=== PATIENT | male | born 1930 | race Caucasian/White ===

== ENCOUNTER → 2017-07-07 | Outpatient (CLI) | payer MEDICARE, OTHER ==
[~2017-07-07] MED LIST: ASPIR 8181 MG; BENAZEPRIL HCL20 MG PO; CENTRUM SILVER1 EAC2; FISH OIL 1,2001 EACH; LEVOTHYROXINE25 MCG PO; NEXIUM40 MG PO; PROAIR HFA INH8.5 GM; TERAZOSIN HCL2 MG PO; TRAZODONE HCL50 MG PO
--- NOTE | 2017-07-07 10:04 | Diagnostic Imaging Report ---
Exam: Brain MRI without IV contrast History: Left ear pain, speech difficulty Comparison studies: Brain MRI 04/16/2015, head CTs of 08/12/2015 and 12/25/2007. Technique: Sagittal and axial T2 FS, axial DWI, axial and coronal T2 FLAIR, axial T2*GRE. Intravenous contrast: None Findings: Scalp: Normal in signal. No masses. Bone marrow: Normal in signal intensity. Brain sulci: Mildly prominent. Ventricles: Mild compensatory dilatation. Unchanged nonspecific focal adhesion in the frontal horn of the left lateral ventricle without associated ventricular entrapment. No hydrocephalus. Extra axial spaces: No mass or fluid collection. Parenchyma: No mass, hemorrhage or acute ischemia. Scattered discrete and confluent periventricular T2 FLAIR hyperintense signal changes in the supratentorial white matter are nonspecific but most compatible with chronic small vessel ischemic changes. Suprasellar region: No abnormalities. Craniocervical junction: Patent foramen magnum. No Chiari deformation. Vessels: Normal flow-voids in the arteries and sinuses. Incidental findings: Intraocular lens replacements related to previous cataract surgery. IMPRESSION: 1. Mild generalized volume loss. 2. Moderate supratentorial chronic microvascular ischemic changes. 3. No changes from the previous brain MRI of 04/16/2015. Signed by: Dr. Ritesh Chowdhury M.D. on 07/07/2017 10:01 AM
== END ==
LOC: MRI 07:24
PROVIDERS: ATTEND Family Medicine
DX: H92.02 Otalgia, left ear (principal); R47.9 Unspecified speech disturbances
CPT/HCPCS: 70551

== ENCOUNTER → 2017-09-11 | Day surgery (SDC) | payer MEDICARE, OTHER ==
[2017-09-07 10:43] LABS: BASOPHILS % 0.3 % (0.0-1.0); EOSINOPHILS # (AUTO) 0.1 (0.0-0.4); EOSINOPHILS % 1.7 % (0.0-6.0); HEMATOCRIT 40.1 % (38.2-49.6); HEMOGLOBIN 13.8 g/dL (14.0-18.0); LYMPHOCYTES # (AUTO) 3.1 (1.0-3.2); LYMPHOCYTES % 43.4 % (18.0-39.1); MEAN CORPUSCULAR HEMOGLOBIN 29.4 pg (28-32); MEAN CORPUSCULAR HGB CONC 34.4 g/dL (31-35); MEAN CORPUSCULAR VOLUME 85.3 fL (81-99); MONOCYTES # (AUTO) 0.7 (0.2-0.8); MONOCYTES % 9.9 % (4.4-11.3); NEUTROPHILS # (AUTO) 3.2 (2.1-6.9); NEUTROPHILS % 44.4 % (38.7-80.0); PLATELET COUNT 241 x10e3/uL (140-360); RED CELL DISTRIBUTION WIDTH 12.7 % (11.7-14.4)
[~2017-09-11] MED LIST changes: +FENTANYL CITRATE/PF 100MCG/2 ML INJ ONE; +GLYCOPYRROLATE INJ 1MG/ 5 ML SYR ONE; +HYOSCYAMINE SULFATE 0.5 MG/ML AMP ONE; +LIDOCAINE HCL 2% LOCAL INJ 5 ML SDV VIAL INJ ONE; +LOSARTAN POTASS25 MG; +MIDAZOLAM HCL 2 MG/2 ML VIAL ONE; +PROPOFOL IV EMULSION 10 MG/ML 20 ML VIAL ONE
--- NOTE | 2017-09-11 16:24 | Operative Report ---
DATE OF PROCEDURE: September 11, 2017 REFERRING PHYSICIAN: Dr. Dutch Huff PROCEDURES PERFORMED 1. Esophagogastroduodenoscopy with esophageal dilatation over a wire and biopsies. 2. Colonoscopy with polypectomy. INDICATION FOR EGD: Dysphagia. INDICATION FOR COLONOSCOPY: Colorectal cancer screening. MEDICATION: Patient was done under MAC. Please see anesthesiologist's note. PROCEDURE: With the patient in the left lateral decubitus position, the flexible fiberoptic Olympus gastroscope was introduced into the esophagus under direct visualization without any difficulty. There was some diffuse erythema noted in the distal esophagus. There was a tight stricture noted at the GE junction that could not be traversed with the scope. The stricture was then dilated to size 15 Savary over a wire. The scope was then advanced with ease into the stomach. Mucosa overlying the antrum and the body revealed some patchy areas of erythema and low-grade edema, and biopsies were obtained and sent to stain for H. pylori. Pylorus was of normal contour and shape, but there was a focal nodularity just distal to the pylorus in the proximal duodenal bulb, and biopsies were obtained. The rest of the duodenal bulb and the proximal 2nd portion of the duodenum were within normal limits. The scope was then withdrawn back into the stomach and retroflexed. Mucosa overlying the fundus and the cardia appeared to be within normal limits. The scope was then straightened out. The stomach was decompressed. Scope was subsequently withdrawn. Patient tolerated the procedure well. IMPRESSION 1. Distal esophagitis. 2. 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 3. Gastritis, biopsied. Biopsies sent to stain for H. pylori. 4. Focal nodularity, duodenal bulb, biopsied. PLAN: Follow up histology. Increase Nexium to 40 mg 1 p.o. a.c. b.i.d. The patient was then turned around. After adequate lubrication of the anal canal, a flexible fiberoptic Olympus colonoscope was inserted into the rectum with ease and advanced all the way to the ileocolic anastomosis. Anastomosis appeared intact. The scope was then withdrawn slowly, and 1 minute polyp was hot biopsied from the ascending colon. Diverticular disease was noted pretty much throughout. The rectum grossly appeared to be within normal limits. The scope was then retroflexed into the distal rectum, and the area around the dentate line appeared to be within normal limits. The scope was then straightened out. It was subsequently withdrawn. Patient tolerated the procedure well. IMPRESSION 1. Ileocolic anastomosis intact. 2. Diverticulosis. 3. Ascending colon polyp, hot biopsied. PLAN: Follow up histology. Initiate high-fiber, low-fat diet. Initiate high-fiber supplement. Start MiraLAX 17 grams in a glass of water p.o. b.i.d. There is no need for followup colonoscopy in this patient. Job#: [id number] cc:DUTCH HUFF MD
== END | disposition home or self-care (01) ==
LOC: OR 12:33
PROVIDERS: ATTEND Internal Medicine Gastroenterology
DX: K29.50 Unspecified chronic gastritis without bleeding (principal); K63.5 Polyp of colon; K22.2 Esophageal obstruction; K20.9 Esophagitis, unspecified; K21.9 Gastro-esophageal reflux disease without esophagitis; K31.89 Other diseases of stomach and duodenum; Z98.0 Intestinal bypass and anastomosis status; K59.00 Constipation, unspecified; K57.30 Diverticulosis of large intestine without perforation or abscess without bleeding; I10 Essential (primary) hypertension; I44.7 Left bundle-branch block, unspecified; E03.9 Hypothyroidism, unspecified; T78.49XA Other allergy, initial encounter; J34.9 Unspecified disorder of nose and nasal sinuses; Z90.49 Acquired absence of other specified parts of digestive tract; X58.XXXA Exposure to other specified factors, initial encounter; Z01.810 Encounter for preprocedural cardiovascular examination; Z01.812 Encounter for preprocedural laboratory examination; Z79.899 Other long term (current) drug therapy; Z79.82 Long term (current) use of aspirin
CPT/HCPCS: 36415; 43239; 43248; 45384; 85025; 88305; 88312; 93005; J1980; J2001; J2250; J3490; 43450; 45378

== ENCOUNTER → 2017-09-21 | Outpatient (CLI) | payer MEDICARE, OTHER ==
[~2017-09-21] MED LIST changes: -FENTANYL CITRATE/PF 100MCG/2 ML INJ ONE; -GLYCOPYRROLATE INJ 1MG/ 5 ML SYR ONE; -HYOSCYAMINE SULFATE 0.5 MG/ML AMP ONE; -LIDOCAINE HCL 2% LOCAL INJ 5 ML SDV VIAL INJ ONE; -MIDAZOLAM HCL 2 MG/2 ML VIAL ONE; -PROPOFOL IV EMULSION 10 MG/ML 20 ML VIAL ONE
--- NOTE | 2017-09-21 12:36 | Diagnostic Imaging Report ---
EXAM: CT Chest WITHOUT contrast INDICATION: \[id number] \S\[id number] \S\SNORING/SOB/PULM HTN/INSOMNIA/FIBRO COMPARISON: Chest CT dated 10/21/2016 TECHNIQUE: Chest was scanned utilizing a multidetector helical scanner from the lung apex through the level of the adrenal glands without administration of IV contrast. Absence of intravenous contrast decreases sensitivity for detection of lymphadenopathy and vascular pathology. Coronal and sagittal reformations were obtained. Routine protocol was performed. IV CONTRAST: None COMPLICATIONS: None RADIATION DOSE: Total DLP: 467.95 mGy*cm Estimated effective dose: (DLP x 0.014 x size factor) mSv CTDIvol has been reviewed. It is below the limits set by the Radiation Protocol Committee (RPC). FINDINGS: LINES/ TUBES: None. LUNGS AND AIRWAYS: Mild subpleural reticulations are again seen in posterior right upper lobe, anterior left upper lobe, and in both lung bases (right more than left). Bilateral lower lobe bronchiectasis, right greater than left. 3 mm nonspecific right upper lobe nodule (series 3, image 48). Airways are normal. PLEURA: The pleural spaces are clear. Bilateral calcified pleural plaques, right greater than left. HEART AND MEDIASTINUM: The thyroid gland is normal. No mediastinal, hilar or axillary lymphadenopathy. Unchanged scattered subcentimeter mediastinal lymph nodes. Mild cardiomegaly. There is no pericardial effusion. Main pulmonary artery measures 2.8 cm. Severe atherosclerotic calcification of LAD. UPPER ABDOMEN: Few punctate hepatic calcified granulomas. 5.1 cm hepatic caudate lobe cyst. BONES: The visualized bony thorax is within normal limits. SOFT TISSUES: Unremarkable. IMPRESSION: No significant interval change from prior exam. Stable changes of interstitial lung disease as also noted on CT dated 10/21/2016. Bilateral calcified pleural plaques, suggestive of remote asbestos exposure. Signed by: Dr. Anjel Hammond MD on 09/21/2017 12:32 PM
== END ==
LOC: CT 08:40
PROVIDERS: ATTEND Internal Medicine Critical Care Medicine
DX: R06.02 Shortness of breath (principal); J47.9 Bronchiectasis, uncomplicated; J84.10 Pulmonary fibrosis, unspecified; I25.10 Atherosclerotic heart disease of native coronary artery without angina pectoris; K21.9 Gastro-esophageal reflux disease without esophagitis; G47.00 Insomnia, unspecified; R26.81 Unsteadiness on feet; R06.83 Snoring; E03.9 Hypothyroidism, unspecified; R53.1 Weakness
CPT/HCPCS: 71250

== ENCOUNTER → 2018-05-04 | Outpatient (CLI) | payer MEDICARE, OTHER ==
[2018-05-04 14:57] LABS: FOLATE 36.2 ng/mL (7.0-15.4)
--- NOTE | 2018-05-04 15:33 | Diagnostic Imaging Report ---
MRI SPINE LUMBAR WO HISTORY: Left leg weakness COMPARISON: Chest CT 09/21/2017; no dedicated prior lumbar spine imaging available at time of dictation TECHNIQUE: Sagittal T1, sagittal T2, sagittal STIR, axial T2, coronal T2, and axial proton density weighted images of the lumbar spine were obtained without contrast. DISCUSSION: Number of non-rib bearing lumbar vertebral bodies: 5. Alignment: Normal lordosis. No scoliosis. Vertebrae: No fractures, infection or neoplasm. Conus medullaris: Normal, ends at L1-L2. Cauda equina: No masses or arachnoiditis. Posterior paraspinal muscles: Well preserved. No signal abnormalities. Soft tissues: Partially visualized T2 hyperintense right hepatic cyst is present. A few small T2 hyperintense lesions in both kidneys are likely cysts. Distal colonic diverticulosis is partially visualized. Mild multilevel disc degeneration is present. There may be small posterior annular fissures at L1-L2, L4-L5, and L5-S1. T12-L1: Disc bulge without significant canal or foraminal stenosis. L1-L2: Disc bulge without significant canal or foraminal stenosis. L2-L3: Mild canal stenosis due to disc bulge and ligamentum flavum thickening. Mild right foraminal stenosis due to asymmetry of the disc bulge and facet arthrosis. No significant left foraminal stenosis. L3-L4: Mild bilateral foraminal stenoses due to disc bulge and facet arthrosis. No significant canal stenosis. L4-L5: Mild canal stenosis due to disc bulge and ligamentum flavum thickening. Mild bilateral foraminal stenoses due to disc bulge and facet arthrosis. L5-S1: Mild to moderate right and moderate to severe left foraminal stenoses due to disc bulge and facet arthrosis. No significant canal stenosis. IMPRESSION: 1. Mild multilevel disc degeneration. 2. Multilevel bilateral degenerative foraminal stenoses - moderate to severe left and mild to moderate right at L5-S1. 3. Mild degenerative canal stenoses at L2-L3 and L4-L5. Signed by: Dr. Caden Cary M.D. on 05/04/2018 3:30 PM
== END ==
LOC: MRI 12:29
PROVIDERS: ATTEND Psychiatry & Neurology Clinical Neurophysiology
DX: R29.898 Other symptoms and signs involving the musculoskeletal system (principal); M62.81 Muscle weakness (generalized)
CPT/HCPCS: 72148; 82607; 82746; 82784

== ENCOUNTER 2018-06-11 13:00 | Outpatient (RCR) | payer MEDICARE, OTHER | END 2018-06-13 | LOC: PT 13:00 | PROVIDERS: ATTEND Psychiatry & Neurology Clinical Neurophysiology | DX: M54.16 Radiculopathy, lumbar region (principal); G62.9 Polyneuropathy, unspecified ==

== ENCOUNTER 2018-07-12 13:00 | Outpatient (RCR) | payer MEDICARE, OTHER | END 2018-07-13 | LOC: PT 13:00 | PROVIDERS: ATTEND Psychiatry & Neurology Clinical Neurophysiology | DX: M54.16 Radiculopathy, lumbar region (principal); G62.9 Polyneuropathy, unspecified | CPT/HCPCS: 97139 ==

== ENCOUNTER → 2018-07-29 | Outpatient (CLI) | payer MEDICARE, OTHER ==
--- NOTE | 2018-07-29 11:25 | Diagnostic Imaging Report ---
EXAMINATION: CT scan of the chest without contrast. TECHNIQUE: Spiral CT images of the chest were performed from the lung apices to the level of the adrenal glands. No intravenous contrast was administered per referring physician request. Coronal and sagittal reformatted images were obtained. COMPARISON: 09/21/2017 CLINICAL HISTORY:Bronchitis, fibrosis DISCUSSION: ABSENCE OF INTRAVENOUS CONTRAST DECREASES SENSITIVITY FOR DETECTION OF FOCAL LESIONS AND VASCULAR PATHOLOGY. LINES/TUBES: None. LUNGS AND AIRWAYS: No appreciable interval change in subpleural reticulation in the posterior right upper lobe, lingula, and the bilateral lower lobes, right greater than left. Also stable bilateral lower lobe traction bronchiectasis, again right greater than left 3 mm right upper lobe nodule described on the comparison is less conspicuous on the current study. Right middle lobe nodular opacity represents an endobronchial filling defect (series 3 image 95) PLEURA: Unchanged bilateral pleural plaques with associated calcifications. No pleural effusion or pneumothorax. HEART AND MEDIASTINUM: The visualized thyroid gland appears normal. Atherosclerotic calcification of the thoracic aorta and coronary arteries. No pericardial effusion. LYMPH NODES: Nonspecific subcentimeter mediastinal lymph nodes are unchanged. No axillary, hilar, or mediastinal lymphadenopathy. ABDOMEN: Unchanged cyst in the caudate lobe of the liver calcified granuloma left hepatic lobe. Visualized liver, spleen, adrenals, and pancreas are otherwise unremarkable. BONES AND SOFT TISSUES: No osseous destructive lesions. Multilevel degenerative disc changes of the thoracic spine. 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 Atherosclerotic vascular disease. Signed by: Dr. Ritesh Kelly M.D. on 07/29/2018 11:22 AM
== END ==
LOC: CT 10:16
PROVIDERS: ATTEND Internal Medicine Critical Care Medicine
DX: R06.02 Shortness of breath (principal); R53.1 Weakness; J47.9 Bronchiectasis, uncomplicated; I25.10 Atherosclerotic heart disease of native coronary artery without angina pectoris; K21.9 Gastro-esophageal reflux disease without esophagitis; J84.10 Pulmonary fibrosis, unspecified; I27.20 Pulmonary hypertension, unspecified; R06.83 Snoring; G47.00 Insomnia, unspecified; R26.81 Unsteadiness on feet; E03.9 Hypothyroidism, unspecified
CPT/HCPCS: 71250

== ENCOUNTER → 2018-08-13 | Outpatient (RCR) | payer MEDICARE, OTHER | LOC: PT 07-26 12:57 | PROVIDERS: ATTEND Psychiatry & Neurology Clinical Neurophysiology | DX: M54.16 Radiculopathy, lumbar region (principal); M47.26 Other spondylosis with radiculopathy, lumbar region; G62.9 Polyneuropathy, unspecified; M62.81 Muscle weakness (generalized); R26.9 Unspecified abnormalities of gait and mobility ==

== ENCOUNTER 2018-08-23 12:59 | Outpatient (RCR) | payer MEDICARE, OTHER | END 2018-09-12 | LOC: PT 12:59 | PROVIDERS: ATTEND Psychiatry & Neurology Clinical Neurophysiology | DX: M47.26 Other spondylosis with radiculopathy, lumbar region (principal); G62.9 Polyneuropathy, unspecified; M62.81 Muscle weakness (generalized); R26.9 Unspecified abnormalities of gait and mobility ==

== ENCOUNTER → 2018-08-24 | Outpatient (CLI) | payer MEDICARE, OTHER ==
--- NOTE | 2018-08-24 11:08 | Diagnostic Imaging Report ---
Examination: Brain MRI without Contrast History: Memory loss. Unsteady gait. Comparison studies: None. Technique: Precontrast: Hi resolution Sag T1 with coronal and axial reformats. Axial DWI, T2, T2 flair, gradient echo or SWI Intravenous contrast: None. Findings: Structural lesions: No intra-or extra-axial masses. No hematomas. Atrophy: General: Mild generalized volume loss. Focal: No disproportionate lobar, hippocampal, mesencephalic, pontine, or cerebellar atrophy. Melendez matter: Cortex:No signal abnormalities. No encephalomalacia. Basal ganglia: No atrophy or signal abnormalities. Thalami: No signal abnormalities. Micro hemorrhages: None. White matter signal intensity: There are patchy and confluent areas of T2/FLAIR hyperintensity in the periventricular and subcortical white matter, nonspecific. Subarachnoid spaces: No signal abnormalities. Ventricles: Normal in size and configuration. No hydrocephalus. Hippocampi, fornix and mammillary bodies: Normal in size and symmetric. Other: Skull: No bone marrow abnormalities. Vessels: Expected flow voids present in the major arteries and dural sinuses.. Sella: Normal in size. No intra-or suprasellar abnormalities. Cranio-cervical junction: No abnormalities. Patent foramen magnum. No Chiari one malformation. Paranasal sinuses: No T2 hyperintense mucosal thickening. IMPRESSION: 1. Mild generalized volume loss without lobar predominance. 2. Severe chronic microvascular ischemic change. 3. No acute intracranial abnormality. Signed by: Dr. Sarai Medellin M.D. on 08/24/2018 11:04 AM
== END ==
LOC: MRI 08:25
PROVIDERS: ATTEND Psychiatry & Neurology Clinical Neurophysiology
DX: R41.3 Other amnesia (principal)
CPT/HCPCS: 70551

== ENCOUNTER 2018-09-21 09:56 | Outpatient (RCR) | payer MEDICARE, OTHER | END 2018-10-13 | LOC: PT 09:56 | PROVIDERS: ATTEND Psychiatry & Neurology Clinical Neurophysiology | DX: M47.26 Other spondylosis with radiculopathy, lumbar region (principal); R26.9 Unspecified abnormalities of gait and mobility; R26.81 Unsteadiness on feet; M62.81 Muscle weakness (generalized) | CPT/HCPCS: 97139 ==

== ENCOUNTER → 2019-01-07 | Outpatient (CLI) | payer MEDICARE, OTHER ==
--- NOTE | 2019-01-07 14:56 | Diagnostic Imaging Report ---
EXAM: Focused Soft Tissue Ultrasound Evaluation of right pelvic soft tissues INDICATION: ^[id number] ^1351 ^PELVIC MASS COMPARISON: None TECHNIQUE: Melendez scale, color Doppler images of right pelvic soft tissues were obtained. FINDINGS/IMPRESSION: Focused sonographic evaluation of the right pelvic soft tissues in the area of clinical concern demonstrates a mobile 3.1cm mass with peristalsis consistent with herniated loop of bowel. Signed by: Mary Knight MD on 01/07/2019 2:53 PM
== END ==
LOC: US 13:29
DX: R19.00 Intra-abdominal and pelvic swelling, mass and lump, unspecified site (principal); R10.31 Right lower quadrant pain
CPT/HCPCS: 76882

== ENCOUNTER → 2019-01-21 | Outpatient (CLI) | payer MEDICARE, OTHER ==
[~2019-01-21] MED LIST changes: +IOPAMIDOL 370 MG/ML 200 ML INFUS..BTL INJ ONE; +SODIUM CHLORIDE 0.9% 50ML 50 ML ONE
[2019-01-21 16:49] LABS: BLOOD UREA NITROGEN 17 mg/dL (7-26); BUN/CREATININE RATIO 16 (6-25); CREATININE, SERUM 1.06 mg/dL (0.72-1.25); EST GLOMERULAR FILTRATION RATE > 60 ML/MIN (60-)
--- NOTE | 2019-01-21 17:40 | Diagnostic Imaging Report ---
EXAM: CT Chest WITH contrast- Pulmonary Embolism Protocol INDICATION: Shortness of breath COMPARISON: Chest CT of 07/29/2018 TECHNIQUE: Chest was scanned utilizing a multidetector helical scanner from the lung apex through the level of the diaphragm after administration of IV contrast. Thin section reconstructions were obtained with special concentration on the pulmonary arteries. Coronal and sagittal reformations were obtained. Pulmonary embolism protocol was performed. IV CONTRAST: 100 cc of Isovue 370 RADIATION DOSE: Total DLP: 577.6 mGy*cm Dose modulation, iterative reconstruction, and/or weight based adjustment of the mA/kV was utilized to reduce the radiation dose to as low as reasonably achievable. COMPLICATIONS: None FINDINGS: LINES/ TUBES: None. PULMONARY ARTERIES: No filling defect is identified within the pulmonary arteries to the segmental level. The subsegmental pulmonary arteries are not well opacified. Main pulmonary artery measures 2.9 cm in diameter. LUNGS AND AIRWAYS: The central airways are patent. No focal consolidation. Bilateral dependent subsegmental atelectasis. Diffuse ground glass opacities in a geographic pattern may represent a component of air trapping as well as mild airspace edema. Smooth interlobular septal thickening consistent with interstitial edema. Unchanged background of interstitial lung disease in an NSIP pattern. PLEURA: Scattered calcified pleural plaques. Small right pleural effusion. HEART AND MEDIASTINUM: The thyroid gland is normal. No supraclavicular lymphadenopathy. Multiple prominent mediastinal lymph nodes measure up to 1.3 cm short axis. 10 mm left hilar lymph node. Mild cardiomegaly. No pericardial effusion. Scattered atherosclerotic calcifications involve the coronary arteries, aorta, and proximal great vessels. UPPER ABDOMEN: Limited images of the upper abdomen demonstrate no focal abnormality of the partially visualized liver, spleen, pancreas, adrenals, or upper most kidneys. BONES: No acute osseous injury. No suspicious lytic or blastic lesions. Mild degenerative changes of the visualized spine. SOFT TISSUES: Unremarkable. IMPRESSION: No pulmonary embolism. Airspace and interstitial pulmonary edema, mild cardiomegaly, small right pleural effusion. Unchanged interstitial lung disease and calcified pleural plaques, consistent with priors asbestos exposure. Signed by: Mary Knight MD on 01/21/2019 5:37 PM
== END ==
LOC: CT 15:48
PROVIDERS: ATTEND Internal Medicine Critical Care Medicine
DX: R09.02 Hypoxemia (principal); J47.9 Bronchiectasis, uncomplicated; J42 Unspecified chronic bronchitis; J84.10 Pulmonary fibrosis, unspecified; I27.20 Pulmonary hypertension, unspecified; R53.1 Weakness; F41.9 Anxiety disorder, unspecified; I25.10 Atherosclerotic heart disease of native coronary artery without angina pectoris; K21.9 Gastro-esophageal reflux disease without esophagitis; G47.33 Obstructive sleep apnea (adult) (pediatric); R26.81 Unsteadiness on feet; R06.83 Snoring; E03.9 Hypothyroidism, unspecified
CPT/HCPCS: 36415; 71260; 82565; 84520; Q9967

== ENCOUNTER 2019-01-27 16:41 | Inpatient (IN) | payer MEDICARE, OTHER ==
[~2019-01-27] VITALS: Ht 152.4 cm; Wt 75.9 kg
[~2019-01-27 16:41] MED LIST changes: -IOPAMIDOL 370 MG/ML 200 ML INFUS..BTL INJ ONE; -SODIUM CHLORIDE 0.9% 50ML 50 ML ONE
[2019-01-27] MEDS ORDERED: MORPHINE SULFATE 2 MG/ML SYR 1ML IV ONE (17:00)
[2019-01-27] MEDS ORDERED: SODIUM CHLORIDE 0.9% 500ML 500 ML IV STA (17:00)
[2019-01-27] MEDS ORDERED: PANTOPRAZOLE 40 MG 10ML VIAL IV ONE (17:00)
[2019-01-27 17:24] LABS: BASOPHILS % 0.4 % (0.0-1.0); EOSINOPHILS # (AUTO) 0.2 (0.0-0.4); EOSINOPHILS % 2.6 % (0.0-6.0); HEMATOCRIT 38.3 % (38.2-49.6); HEMOGLOBIN 13.1 g/dL (14.0-18.0); LYMPHOCYTES # (AUTO) 2.9 (1.0-3.2); LYMPHOCYTES % 36.9 % (18.0-39.1); MEAN CORPUSCULAR HEMOGLOBIN 29.8 pg (28-32); MEAN CORPUSCULAR HGB CONC 34.2 g/dL (31-35); MONOCYTES # (AUTO) 0.8 (0.2-0.8); MONOCYTES % 9.7 % (4.4-11.3); PLATELET COUNT 294 x10e3/uL (140-360); RED CELL DISTRIBUTION WIDTH 12.4 % (11.7-14.4)
[2019-01-27 17:34] LABS: INR 1.13; PROTHROMBIN TIME 15.1 seconds (11.9-14.5)
[2019-01-27 17:35] LABS: PARTIAL THROMBOPLASTIN TIME 34.7 seconds (23.8-35.5)
[2019-01-27 17:44] LABS: ALANINE AMINOTRANSFERASE 53 IU/L (0-55); ALBUMIN 3.5 g/dL (3.5-5.0); ALBUMIN/GLOBULIN RATIO 0.9 (0.8-2.0); ALKALINE PHOSPHATASE 68 IU/L (40-150); ANION GAP 12.4 mmol/L (8-16); BLOOD UREA NITROGEN 20 mg/dL (7-26); BUN/CREATININE RATIO 18 (6-25); CALCIUM 9.4 mg/dL (8.4-10.2); CARBON DIOXIDE 25 mmol/L (22-29); CHLORIDE 100 mmol/L (98-107); CREATINE KINASE 125 IU/L (30-200); EST GLOMERULAR FILTRATION RATE > 60 ML/MIN (60-); GLUCOSE 93 mg/dL (74-118); POTASSIUM 4.4 mmol/L (3.5-5.1); SODIUM 133 mmol/L (136-145)
[2019-01-27 17:47] LABS: BILIRUBIN,URINE NEGATIVE (NEGATIVE); CLARITY,URINE SL CLOUDY (CLEAR); COLOR,URINE YELLOW (YELLOW); KETONES,URINE NEGATIVE (NEGATIVE); LEUKOCYTE ESTERASE ,URINE NEGATIVE (NEGATIVE); NITRITE,URINE NEGATIVE (NEGATIVE); PROTEIN,URINE DIPSTICK 2+ (NEGATIVE); URINE UROBILINOGEN 0.2 mg/dL (0.2 - 1)
[2019-01-27 18:01] LABS: EPITHELIAL CELLS,URINE FEW /LPF; RBC,URINE 0-5 /HPF (0-5); WBC,URINE (MAN) 0-5 /HPF (0-5)
--- NOTE | 2019-01-27 18:06 | Diagnostic Imaging Report ---
EXAMINATION: CHEST SINGLE (PORTABLE) INDICATION: Cough COMPARISON: Chest CT of 01/21/2019 FINDINGS: LINES/TUBES:EKG leads overlie the chest. LUNGS:The lungs are well-inflated. There is perihilar fullness and indistinctness of the pulmonary vasculature. There is left basilar opacity silhouetting the left graciela diaphragm. PLEURA:No pleural effusion or pneumothorax. MEDIASTINUM:Cardiomediastinal silhouette is stably enlarged. Atherosclerotic calcifications of the thoracic aorta. BONES/SOFT TISSUES:No acute osseous injury. ABDOMEN:No free air under the diaphragm. IMPRESSION: Cardiomegaly and pulmonary edema. Patchy opacity at the left lung base, more likely subsegmental atelectasis than superimposed aspiration or pneumonia. Signed by: Mary Knight MD on 01/27/2019 6:03 PM
[2019-01-27] MEDS ORDERED: FUROSEMIDE40 MG PO (18:59)
[2019-01-27] MEDS ORDERED: MIRTAZAPINE15 MG PO (18:59)
[2019-01-27] MEDS ORDERED: ALPRAZOLAM0.25 MG PO (18:59)
--- NOTE | 2019-01-27 19:02 | NUR ---
Report to CRIS Oconnor
--- NOTE | 2019-01-27 19:15 | Diagnostic Imaging Report ---
EXAM: CT Abdomen and Pelvis WITH contrast INDICATION: Lower abdominal pain. GI bleeding COMPARISON: 01/26/2009 TECHNIQUE: Abdomen and pelvis were scanned utilizing a multidetector helical scanner from the lung base to the pubic symphysis after administration of IV contrast. Coronal and sagittal reformations were obtained. Routine protocol was performed. Scan was performed when during portal venous phase. IV CONTRAST: 100 mL of Isovue 370 ORAL CONTRAST: Water COMPLICATIONS: None RADIATION DOSE: Total DLP: 468 mGy*cm Estimated effective dose: (DLP x 0.015 x size factor) mSv CTDIvol has been reviewed. It is below the limits set by the Radiation Protocol Committee (RPC). Dose modulation, iterative reconstruction, and/or weight based adjustment of the mA/kV was utilized to reduce the radiation dose to as low as reasonably achievable. FINDINGS: LINES and TUBES: None. LOWER THORAX: Chronic appearing change at the lung bases with calcified pleural plaques HEPATOBILIARY: No focal hepatic lesions. No biliary ductal dilation. GALLBLADDER: No radio-opaque stones or sludge. No wall thickening. SPLEEN: No splenomegaly. PANCREAS: No focal masses or ductal dilatation. ADRENALS: No adrenal nodules KIDNEYS/URETERS: Kidneys enhance symmetrically. No hydronephrosis. No cystic or solid mass lesions. No stones. GI TRACT: No abnormal distention, wall thickening, or evidence of bowel obstruction. Appendix is normal. Scattered diverticulosis without evidence of diverticulitis PELVIC ORGANS/BLADDER: Unremarkable. LYMPH NODES: No lymphadenopathy. VESSELS: Scattered vascular calcification. PERITONEUM / RETROPERITONEUM: No free air or fluid. BONES: Scattered degenerative change. SOFT TISSUES: Fat and bowel containing right internal hernia. No bowel obstruction. IMPRESSION: 1. Scattered diverticulosis without evidence of diverticulitis. 2. Fat and bowel containing right inguinal hernia. No bowel obstruction. Signed by: Dr. Sunday Morgan M.D. on 01/27/2019 7:12 PM
[2019-01-27] MEDS ORDERED: IOPAMIDOL 300MG/ML 100 ML INFUS..BTL IV ONE (19:29)
[2019-01-27] MEDS ORDERED: SODIUM CHLORIDE 0.9% 50ML 50 ML ONE (19:29)
[2019-01-27] MEDS ORDERED: IOPAMIDOL 370 MG/ML 200 ML INFUS..BTL INJ ONE (19:32)
[2019-01-27] MEDS ORDERED: ONDANSETRON HCL INJ 2MG/ML 2ML 2 MG/ML VIAL IV PRN (20:30)
[2019-01-27 22:00] VITALS: BP 153/81
--- NOTE | 2019-01-27 22:00 | NUR ---
Patient received via stretcher from ER. AAO x 3. Patient had no complaints of pain. Respirations even and non-labored on 2L NC. Admission history obtained. Initial physical assessment conducted. Patient oriented to room, call light and plan of care. Patient instructed to call for assistance when needed. Call light within
[2019-01-27 22:09] VITALS: BP 153/81
[2019-01-27] MEDS: SODIUM CHLORIDE 0.9% 1000ML 1,000 ML IV SCH (22:15)
[2019-01-28] VITALS (9 sets, daily range): BP systolic 135–175; BP diastolic 76–93
--- NOTE | 2019-01-28 00:15 | NUR ---
Blood specimen sent to lab for analysis of H & H.
[2019-01-28 01:05] LABS: HEMATOCRIT 35.8 % (38.2-49.6); HEMOGLOBIN 12.1 g/dL (14.0-18.0)
[2019-01-28 05:39] LABS: HEMATOCRIT 33.9 % (38.2-49.6)
[2019-01-28] MEDS: SODIUM CHLORIDE 0.9% 1000ML 1,000 ML IV SCH ×2 (06:16→17:06)
--- NOTE | 2019-01-28 07:15 | NUR ---
Patient resting comfortably. Walking rounds done. Shift report given to oncoming nurse.
[2019-01-28] MEDS: PANTOPRAZOLE 40 MG 10ML VIAL IV SCH (08:57)
[2019-01-28 11:07] LABS: HEMATOCRIT 38.4 % (38.2-49.6); HEMOGLOBIN 12.9 g/dL (14.0-18.0)
[2019-01-28] MEDS: HYDROMORPHONE 1MG/1ML INJ IV PRN ×3 (12:14→21:29)
[2019-01-28 18:49] LABS: HEMATOCRIT 34.9 % (38.2-49.6); HEMOGLOBIN 11.8 g/dL (14.0-18.0)
--- NOTE | 2019-01-28 19:20 | NUR ---
Patient received sitting up in bed. Son at bedside. No acute distress noted. Fall precautions implemented. Call light within reach.
--- NOTE | 2019-01-28 20:13 | NUR ---
Dr. Ronnie Barreto notified of patient's elevated BP (175/93) with HR (84) and renewing home medications . Order received to renew home medications.
[2019-01-28] MEDS ORDERED: NON-FORMULARY MEDICATION (Terazosin Hcl 2 MG) PO SCH (21:00)
[2019-01-28] MEDS: TERAZOSIN HCL 1 MG CAP PO SCH (21:00)
[2019-01-28] MEDS: ALPRAZOLAM 0.25 MG TAB PO SCH (21:00)
[2019-01-28] MEDS: TRAZODONE HCL 50 MG TAB PO SCH (21:00)
[2019-01-28] MEDS: LOSARTAN POTASSIUM 25 MG TAB PO SCH (21:04)
[2019-01-28] MEDS: FUROSEMIDE 40 MG TAB PO SCH (21:05)
[2019-01-29] VITALS (8 sets, daily range): BP systolic 122–160; BP diastolic 69–81
--- NOTE | 2019-01-29 00:16 | NUR ---
Blood specimen sent to lab for H & H analysis.
[2019-01-29 00:20] LABS: HEMOGLOBIN 10.9 g/dL (14.0-18.0)
--- NOTE | 2019-01-29 01:06 | Consultation ---
DATE OF CONSULTATION: HISTORY OF PRESENT ILLNESS: An 88 years old gentleman with history of atrial fibrillation, hypertension, hypothyroidism, and prostate hypertrophy, came to the hospital yesterday after episode of dark colored blood per rectum. Throughout the day today, his hemoglobin and hematocrit remained very consistent around 13 hemoglobin and 38 hematocrit. He ever had a colonoscopy by Dr. Clifton Barreto about a year ago. CAT scan with contrast on admission showed scattered diverticulosis. The patient denied abdominal pain, nausea, and vomiting, heartburn, acid reflux, or change in bowel habit. Denies using nonsteroidal anti-inflammatory drugs. ALLERGIES: NIL. CURRENT MEDICATIONS: Dilaudid, Protonix, and Zofran. SOCIAL HISTORY: Socially, he does not smoke or drink. He stopped smoking in 1974. REVIEW OF SYSTEMS: Unremarkable. PHYSICAL EXAMINATION: GENERAL: Awake, alert, oriented, comfortable in bed. VITAL SIGNS: Temperature 97, pulse 64, and blood pressure 142/83. NECK: Supple. LUNGS: Clear. HEART: Regular irregular. Occasional irregular beat and pansystolic murmur. ABDOMEN: Mildly distended. Bowel sounds present. No acute sign. Nontender. No masses. EXTREMITIES: No edema. LABS: Recent hemoglobin 13, hematocrit 38, platelets 295, and white cell count 7. Stool positive for blood. Urinalysis is unremarkable. PT 15, INR 1.13, PTT normal. Albumin 3.5, AST mildly elevated of 41, calcium 9.4, BUN and creatinine normal. Sodium and potassium normal. IMPRESSION: Lower gastrointestinal bleed, most likely diverticulosis. The patient had colonoscopy by Dr. Barreto last year. Throughout the time of visit since admission, he has not had a drop in hemoglobin and hematocrit. The patient is 88 years old. I would rather be very conservative in his treatment. Continue his Protonix. We will place him on liquid diet, start him on fiber, and continue observation today. The AST is mildly elevated at 41. We will address as an outpatient if it is continued to be elevated. Ran Loving MD RD/MODL /[id number]
[2019-01-29] MEDS: SODIUM CHLORIDE 0.9% 1000ML 1,000 ML IV SCH ×3 (04:00→22:16)
[2019-01-29] MEDS: HYDROMORPHONE 1MG/1ML INJ IV PRN ×4 (04:05→23:37)
[2019-01-29 05:28] LABS: HEMATOCRIT 33.7 % (38.2-49.6); HEMOGLOBIN 11.2 g/dL (14.0-18.0)
[2019-01-29] MEDS: ALBUTEROL SULFATE HFA 8GM INHALATION AEROSOL INH SCH (06:00)
--- NOTE | 2019-01-29 07:00 | NUR ---
Shift report given to oncoming nurse.
--- NOTE | 2019-01-29 07:10 | NUR ---
RCD PT AT BED PT IS ALERT AND ORIENTED PT RESTING ON BED IV PATENT AND RUNNING 100 ML /HR BED LOW AND LOCKED CALL LIGHT IN REACH
[2019-01-29] MEDS: LEVOTHYROXINE SODIUM 25 MCG TABLET PO SCH (07:30)
[2019-01-29] MEDS: PANTOPRAZOLE 40 MG 10ML VIAL IV SCH (09:00)
[2019-01-29] MEDS: ASPIRIN 81 MG CHEW TAB PO SCH (09:00)
[2019-01-29] MEDS: MIRTAZAPINE 15 MG TAB PO SCH (09:00)
[2019-01-29] MEDS: LOSARTAN POTASSIUM 25 MG TAB PO SCH (09:00)
[2019-01-29] MEDS: ALPRAZOLAM 0.25 MG TAB PO SCH ×3 (09:00→20:47)
[2019-01-29] MEDS ORDERED: PANTOPRAZOLE SOD 40 MG TABEC PO SCH (09:00)
[2019-01-29] MEDS ORDERED: PSYLLIUM 6GM PACKET PO PRN (12:00)
[2019-01-29 12:13] LABS: HEMATOCRIT 37.6 % (38.2-49.6); HEMOGLOBIN 12.2 g/dL (14.0-18.0)
--- NOTE | 2019-01-29 12:57 | Progress Note ---
DATE: SUBJECTIVE: I am following Mr. Cui for his lower GI bleed, which today apparently has stopped. He went to the bathroom, did not see any blood coming out. He had a colonoscopy last year by Dr. Barreto. His CT scan of the abdomen only showed diverticulosis, most likely the cause of his bleed. LABORATORY DATA: His hemoglobin, hematocrit on admission were 13 and 38, today they are 11 and 33. OBJECTIVE: VITAL SIGNS: Afebrile, hemodynamically stable. Blood pressure 145/72. ASSESSMENT AND PLAN: The patient is 88-year-old. We will continue conservative care. If his hemoglobin, hematocrit remained stable, we will advance his diet and then can be followed as an outpatient. Ran Loving MD RD/MODL /[id number]
[2019-01-29 18:14] LABS: HEMATOCRIT 35.5 % (38.2-49.6); HEMOGLOBIN 11.7 g/dL (14.0-18.0)
--- NOTE | 2019-01-29 19:09 | NUR ---
PT RESTING ON BED BED SIDE REPORT GIVEN TO ONCOMING NURSE
[2019-01-29] MEDS: TRAZODONE HCL 50 MG TAB PO SCH (20:47)
[2019-01-29] MEDS: TERAZOSIN HCL 1 MG CAP PO SCH (20:47)
[2019-01-30] VITALS (8 sets, daily range): BP systolic 137–153; BP diastolic 70–89
[2019-01-30 01:25] LABS: HEMATOCRIT 32.5 % (38.2-49.6); HEMOGLOBIN 10.6 g/dL (14.0-18.0)
[2019-01-30] MEDS: SODIUM CHLORIDE 0.9% 1000ML 1,000 ML IV SCH ×3 (04:51→18:16)
[2019-01-30 05:33] LABS: BASOPHILS % 0.4 % (0.0-1.0); EOSINOPHILS # (AUTO) 0.3 (0.0-0.4); EOSINOPHILS % 4.1 % (0.0-6.0); HEMOGLOBIN 11.3 g/dL (14.0-18.0); LYMPHOCYTES # (AUTO) 3.2 (1.0-3.2); LYMPHOCYTES % 43.6 % (18.0-39.1); MEAN CORPUSCULAR HGB CONC 32.3 g/dL (31-35); MEAN CORPUSCULAR VOLUME 89.7 fL (81-99); MONOCYTES # (AUTO) 0.6 (0.2-0.8); MONOCYTES % 8.9 % (4.4-11.3); NEUTROPHILS # (AUTO) 3.1 (2.1-6.9); NEUTROPHILS % 42.7 % (38.7-80.0); PLATELET COUNT 236 x10e3/uL (140-360); RED CELL DISTRIBUTION WIDTH 12.2 % (11.7-14.4)
[2019-01-30 05:52] LABS: ANION GAP 13.5 mmol/L (8-16); BLOOD UREA NITROGEN 10 mg/dL (7-26); BUN/CREATININE RATIO 11 (6-25); CALCIUM 8.4 mg/dL (8.4-10.2); CARBON DIOXIDE 23 mmol/L (22-29); CHLORIDE 101 mmol/L (98-107); CREATININE, SERUM 0.89 mg/dL (0.72-1.25); EST GLOMERULAR FILTRATION RATE > 60 ML/MIN (60-); GLUCOSE 88 mg/dL (74-118); POTASSIUM 4.5 mmol/L (3.5-5.1); SODIUM 133 mmol/L (136-145)
--- NOTE | 2019-01-30 07:09 | NUR ---
BEDSIDE ROUND COMPLETED WITH [facility] ACOSTA. PATIENT SLEEPING AND APPEARS TO BE IN NO APPARENT DISTRESS. RESPIRATIONS EVEN AND REGULAR. CALL LIGHT IS IN REACH OF PT. WILL CONTINUE TO MONITOR.
[2019-01-30] MEDS: MIRTAZAPINE 15 MG TAB PO SCH (08:20)
[2019-01-30] MEDS: PANTOPRAZOLE 40 MG 10ML VIAL IV SCH (08:20)
[2019-01-30] MEDS: ALPRAZOLAM 0.25 MG TAB PO SCH ×3 (08:20→21:33)
[2019-01-30] MEDS: LEVOTHYROXINE SODIUM 25 MCG TABLET PO SCH (08:20)
[2019-01-30] MEDS: LOSARTAN POTASSIUM 25 MG TAB PO SCH (08:20)
[2019-01-30] MEDS: ASPIRIN 81 MG CHEW TAB PO SCH (08:20)
[2019-01-30] MEDS: FUROSEMIDE 40 MG TAB PO SCH (08:22)
[2019-01-30] MEDS: POLYETHYLENE GLYCOL 3350 17 GM PACK PO SCH (09:00)
[2019-01-30] MEDS: ALBUTEROL SULFATE HFA 8GM INHALATION AEROSOL INH SCH (11:15)
[2019-01-30 12:14] LABS: HEMATOCRIT 34.2 % (38.2-49.6); HEMOGLOBIN 11.3 g/dL (14.0-18.0)
--- NOTE | 2019-01-30 12:17 | Progress Note ---
DATE: SUBJECTIVE: Mr. Cui admitted with lower GI bleed. So far since his admission, his hemoglobin and hematocrit have not changed. Continued to be stable today. His hemoglobin is 11, hematocrit 35. He tolerated his breakfast well. Hemodynamically stable. No GI complaint. I feel his bleeding was due to diverticulosis. He did have colonoscopy about a year ago by Dr. Barreto. Nothing to add from GI standpoint. He can be followed as an outpatient. Ran Loving MD RD/MODL /[id number]
--- NOTE | 2019-01-30 19:00 | NUR ---
Received patient from day nurse, patient is alert and oriented x4. patient is currently on room air. Introduced self to patient and safety and fall precautions maintained as per hospital protocol: bed in lowest position and locked, needed items beside bed, call rodriguez placed close to patient, patient in yellow socks, bed alarm activated, patient informed to always call for help. patient is currently stable will continue to monitor.
[2019-01-30 19:55] LABS: HEMATOCRIT 36.8 % (38.2-49.6); HEMOGLOBIN 12.1 g/dL (14.0-18.0)
[2019-01-30] MEDS: TRAZODONE HCL 50 MG TAB PO SCH (21:33)
[2019-01-30] MEDS: TERAZOSIN HCL 1 MG CAP PO SCH (21:33)
[2019-01-31 00:47] VITALS: BP 137/62
[2019-01-31] MEDS: SODIUM CHLORIDE 0.9% 1000ML 1,000 ML IV SCH (04:16)
[2019-01-31 04:55] VITALS: BP 136/63
[2019-01-31] MEDS: ALBUTEROL SULFATE HFA 8GM INHALATION AEROSOL INH SCH (06:00)
--- NOTE | 2019-01-31 07:35 | NUR ---
patient endorsed to next shift for continuity of care.
[2019-01-31 08:00] VITALS: BP 151/72
[2019-01-31 09:00] VITALS: BP 151/72
[2019-01-31] MEDS: LEVOTHYROXINE SODIUM 25 MCG TABLET PO SCH (09:34)
[2019-01-31] MEDS: LOSARTAN POTASSIUM 25 MG TAB PO SCH (09:35)
[2019-01-31] MEDS: FUROSEMIDE 40 MG TAB PO SCH (09:35)
[2019-01-31] MEDS: PANTOPRAZOLE 40 MG 10ML VIAL IV SCH (09:35)
[2019-01-31] MEDS: ASPIRIN 81 MG CHEW TAB PO SCH (09:35)
[2019-01-31] MEDS: MIRTAZAPINE 15 MG TAB PO SCH (09:35)
[2019-01-31] MEDS: ALPRAZOLAM 0.25 MG TAB PO SCH (09:35)
[2019-01-31] MEDS: POLYETHYLENE GLYCOL 3350 17 GM PACK PO SCH (10:08)
--- NOTE | 2019-01-31 11:30 | NUR ---
Spoke with pt at bedside regarding SNF eval order. Pt is agreeable to SNF. States he wants to stay with Dr. Barreto so would like to go to a facility that Dr. Barreto goes to. Offered choice for [facility], [facility] and [facility]. Pt chose [facility]. Signed choice letter placed in chart. Copy to pt. IMM letter delivered and discussed with pt. He verbalized understanding. Signed copy placed in chart. Copy to pt. CM's business card left at bedside for any questions. Pt asked CM to call daughter Micheline at [phone] and update her on dc plan. CM called and spoke with Micheline and answered all questions. Left callback number for any additional questions/concerns. RAI Fields, rep with [facility] was notified of referral. He will come by and citrus picker clinicals.
--- NOTE | 2019-01-31 11:50 | NUR ---
COMPLETED PASRR AND RTF, FAXED CLINICALS THEN WAS NOTIFIED THE DAUGHTER WANTED TO GO LOOK AT BUILDINGS. NOTIFIED [facility] THAT FAMILY LOOKING AT BUILDINGS AND WILL LET KNOW CHOICE AFTER SHE CALLS BACK.
[2019-01-31 11:53] VITALS: BP 140/67
[2019-01-31 13:30] VITALS: BP 154/71
--- NOTE | 2019-01-31 13:56 | NUR ---
SHELBY CALLED AND STATES SHE WANTS [facility], LET FACILITY KNOW THEY WILL SUBMIT FOR APPROVAL AND LET ME KNOW
--- NOTE | 2019-01-31 14:51 | NUR ---
LONG TERM FACILITY DISCHARGE INFORMATION PATIENT HAS BEEN ACCEPTED TO: NAME: [facility] ADDRESS: [address], [place] [address] ACCEPTING MD: ALYSSA ROOM: 300 NURSE CALL REPORT TO: [phone] IMM SIGNED AND OBTAINED (if applicable): YES THE FOLLOWING DOCUMENTS MUST ACCOMPANY PATIENT FOR TRANSFER: COPIED CHART: PACKET WITH CLINICALS AND PASRR. RTF AT DESK.
--- NOTE | 2019-01-31 15:16 | NUR ---
OK per Dr. Ivan Barreto for patient to transfer to [facility], room 300.
--- NOTE | 2019-01-31 15:20 | NUR ---
Mr. Angel is aware he is being transferred to [facility]. I also told him that the hide mill worker contacted his daughter and let her know about the transfer.
--- NOTE | 2019-01-31 15:25 | NUR ---
Attempted to call report to [facility], left my name and number was told receiving nurse would call back shortly for report.
--- NOTE | 2019-01-31 15:39 | NUR ---
Report given to Haily, the admission nurse at [facility] . Patient is being transferred to room 300.
== END 2019-01-31 15:44 | DRG 378 ==
LOC: ER 16:41 → ERHOLD 20:16 → MED/SURG2 21:37
DX: K57.31 Diverticulosis of large intestine without perforation or abscess with bleeding (principal); D62 Acute posthemorrhagic anemia; E03.9 Hypothyroidism, unspecified; N40.0 Benign prostatic hyperplasia without lower urinary tract symptoms; J44.9 Chronic obstructive pulmonary disease, unspecified; I11.0 Hypertensive heart disease with heart failure; I50.9 Heart failure, unspecified; F41.9 Anxiety disorder, unspecified; K21.9 Gastro-esophageal reflux disease without esophagitis; Z98.0 Intestinal bypass and anastomosis status; Z82.49 Family history of ischemic heart disease and other diseases of the circulatory system
CPT/HCPCS: 36415; 71045; 74177; 80048; 80053; 81001; 82270; 82550; 82553; 83735; 84484; 85014; 85018; 85025; 85610; 85730; 86850; 86900; 87086; 93005; 94664; 96360; 99285; J1170; J2270; J7030; J7040; Q9967

== ENCOUNTER → 2019-04-26 | Outpatient (CLI) | payer MEDICARE, OTHER ==
[~2019-04-26] MED LIST changes: +ALPRAZOLAM0.25 MG PO; +FUROSEMIDE40 MG PO; +MIRTAZAPINE15 MG PO
--- NOTE | 2019-04-26 14:40 | Diagnostic Imaging Report ---
CT of the chest, without contrast, 04/26/2019. History: Bronchiectasis/fibrosis. Comparison: CT of the chest dated 01/21/2019, 07/29/2018. Technique: Multidetector CT scanning of the chest was performed from the level of the thoracic inlet to the upper abdomen without IV or oral contrast. Dose reduction: The examination was performed according to departmental dose-optimization program which includes automated exposure control, adjustment of the mA and/or kV according to patient size and/or use of iterative reconstruction technique. Findings: The visualized portions of the thyroid gland are within normal limits. There is no axillary, mediastinal, or hilar lymphadenopathy. Subcentimeter mediastinal lymph nodes are present which are not pathologically enlarged by CT criteria and are stable from prior examination. The heart is mildly enlarged, stable. There is no pericardial effusion. Atherosclerotic coronary artery calcifications are present. The thoracic aorta is of normal course and caliber. The trachea and central airways are clear. No focal consolidation is identified. Lower lobe predominant bronchiectasis and honeycombing are unchanged from prior examinations. A 3 mm pulmonary nodule is identified in the right middle lobe on series 3 axial image 97 There are unchanged bilateral pleural plaques and calcifications which are likely sequela of prior asbestos exposure. No pleural effusion is identified. There is no pneumothorax. Limited evaluation of the upper abdomen demonstrates a unchanged cyst in the caudate lobe of the liver. The spleen is within normal limits. No acute osseous abnormalities are identified. 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 Signed by: Hi Amaro MD on 04/26/2019 2:38 PM
== END ==
LOC: RESP 12:36
PROVIDERS: ATTEND Internal Medicine Critical Care Medicine
DX: R09.02 Hypoxemia (principal); J47.9 Bronchiectasis, uncomplicated; I27.20 Pulmonary hypertension, unspecified; J84.10 Pulmonary fibrosis, unspecified; F41.9 Anxiety disorder, unspecified; J42 Unspecified chronic bronchitis; I25.10 Atherosclerotic heart disease of native coronary artery without angina pectoris; K21.9 Gastro-esophageal reflux disease without esophagitis; G47.00 Insomnia, unspecified; R26.81 Unsteadiness on feet; G47.33 Obstructive sleep apnea (adult) (pediatric); R06.83 Snoring; E03.9 Hypothyroidism, unspecified; R53.1 Weakness
CPT/HCPCS: 71250; 94010

== ENCOUNTER → 2019-05-25 | Outpatient (CLI) | payer MEDICARE, OTHER | LOC: LAB 11:30 | PROVIDERS: ATTEND Internal Medicine Critical Care Medicine | DX: J42 Unspecified chronic bronchitis (principal); R06.02 Shortness of breath; R09.02 Hypoxemia; I27.20 Pulmonary hypertension, unspecified; J84.10 Pulmonary fibrosis, unspecified; I25.10 Atherosclerotic heart disease of native coronary artery without angina pectoris; R53.1 Weakness; K21.9 Gastro-esophageal reflux disease without esophagitis; G47.00 Insomnia, unspecified; R26.81 Unsteadiness on feet; G47.33 Obstructive sleep apnea (adult) (pediatric); R06.83 Snoring; E03.9 Hypothyroidism, unspecified | CPT/HCPCS: 87116; 87206 ==